=== PATIENT | male | born 1985 | race Caucasian/White ===

== ENCOUNTER 2016-08-10 23:13 | Emergency (ER) | payer SELFPAY ==
[~2016-08-10 23:13] MED LIST: DIAZEPAM PO; HYDROCHLOROTHIA25 MG PO; OMEPRAZOLE40 MG PO; PHENERGAN25 MG PO; PHENERGAN50 MG/SUPP PR; TYLENOL325 M1 PO
[2016-08-10] MEDS ORDERED: NO MEDICATIONS (23:18)
[2016-08-10 23:37] LABS: BASOPHIL% 0.3 % (0-2.5); HEMATOCRIT 43.8 % (38.0-50.0); HEMOGLOBIN 14.8 gm/dL (13.0-16.0); LYMPHOCYTE% 7.1 % (17.0-45.0); MEAN CELL VOLUME 85.5 FL (83-96); MEAN CORPUSCULAR HGB CONC 33.9 g/dL (30-36); MEAN PLATELET VOLUME 8.1 FL (6.5-11.5); MONOCYTE# 0.4 X10e3 (0-1.0); MONOCYTE% 2.8 % (3.0-12.0); NEUTROPHIL# 12.2 X10e3 (1.5-7.1); NEUTROPHIL% 89.8 % (40-75); PLATELET COUNT 209 X10e3 (140-420); RED BLOOD COUNT 5.12 X10e (3.90-5.60); RED CELL DISTRIBUTION WIDTH 13.1 % (11.0-15.5); WHITE BLOOD COUNT 13.6 X10e3 (4.0-10.5)
[2016-08-10 23:42] LABS: DIFF IND NO
[2016-08-10 23:52] LABS: ALBUMIN SERUM 4.9 g/dL (3.5-5.0); BILIRUBIN, DIRECT 0.1 mg/dL (0.0-0.2); BILIRUBIN,INDIRECT 0.6 mg/dL (0.0-0.9); BILIRUBIN,TOTAL 0.7 mg/dL (0.2-2.0); BUN/CREATININE RATIO 15.71; CALCIUM SERUM 9.3 mg/dL (8.4-10.2); CREATININE SERUM 0.7 mg/dL (0.6-1.4); GLOM FILT RATE Estimated 126.7 mL/min (>60); POTASSIUM 3.5 mmol/L (3.5-5.1); PROTEIN TOTAL SERUM 7.7 g/dL (6.0-8.3)
== END 2016-08-11 00:55 | disposition home or self-care (01) ==
LOC: SED 23:13
PROVIDERS: Emergency Medicine
DX: R11.2 Nausea with vomiting, unspecified (principal); Z90.49 Acquired absence of other specified parts of digestive tract; Z88.2 Allergy status to sulfonamides
CPT/HCPCS: 36415; 80048; 80076; 83690; 85025; 96361; 96374; 96375; 99284; J2270; J2405

== ENCOUNTER 2016-08-13 16:49 | Emergency (ER) | payer SELFPAY ==
--- NOTE | ~2016-08-13 | CR2 ---
[facility] A Service of [facility] RADIOLOGY TEXT RESULTS PATIENT: SOFIA HAMMER LOCATION: [facility] : 87 UNIT #: [id number] AGE: [address]: Marcos Lynne MD SEX: M ORDER DR: [id number] [facility] [address] [place], [place] [address] [id number] MR#: [id number] Acc #: [id number] NAME: SOFIA HAMMER : 1985 SEX: M STUDY DATE/TIME: 08/13/2016 21:21 UNIT: [facility] ROOM: STUDY DESCRIPTION: CR Abdomen Acute Series Attending Physician: Marcos Lynne M.D. Ordering Physician: Marcos Lynne M.D. Primary Care Physician: No Primary Care Physician MEDICAL IMAGING REPORT This report is preliminary unless electronic signature is present EXAM Acute abdomen series HISTORY Nausea and vomiting and diarrhea for 1 week. Fever. FINDINGS Flat and upright views of the abdomen and upright view of the chest demonstrate the bowel gas pattern is normal. No bowel dilatation or displacement or free air. Upright view of the chest demonstrates the cardiac size and pulmonary vascularity are normal. Surgical clips in the right upper quadrant and partial sacralization of L5 on the left are incidentally noted. IMPRESSION Negative acute abdomen series. No bowel obstruction. No active disease in the chest. Dictated by... Yoni Augustin M.D. THIS IS AN ELECTRONICALLY VERIFIED REPORT Yoni Augustin M.D. at 08/16/2016 10:19 AM ELISABETH/ricardo TD: 08/14/2016 05:44 JOB #: [id number] MEDICAL IMAGING REPORT Page 1 of 1 COPY
[~2016-08-13 16:49] MED LIST changes: +NO MEDICATIONS
[2016-08-13 17:40] LABS: BASOPHIL# 0.1 X10e3 (0-0.3); BASOPHIL% 0.5 % (0-2.5); EOSINOPHIL% 0.3 % (0.0-7.0); HEMATOCRIT 49.8 % (38.0-50.0); HEMOGLOBIN 16.7 gm/dL (13.0-16.0); LYMPHOCYTE# 2.7 X10e3 (1.0-3.5); LYMPHOCYTE% 24.4 % (17.0-45.0); MEAN CELL VOLUME 85.8 FL (83-96); MEAN CORPUSCULAR HEMOGLOBIN 28.7 PG (28-34); MEAN CORPUSCULAR HGB CONC 33.5 g/dL (30-36); MEAN PLATELET VOLUME 8.4 FL (6.5-11.5); MONOCYTE# 0.8 X10e3 (0-1.0); MONOCYTE% 7.5 % (3.0-12.0); NEUTROPHIL# 7.5 X10e3 (1.5-7.1); NEUTROPHIL% 67.3 % (40-75); PLATELET COUNT 254 X10e3 (140-420); RED BLOOD COUNT 5.81 X10e (3.90-5.60); RED CELL DISTRIBUTION WIDTH 13.1 % (11.0-15.5); WHITE BLOOD COUNT 11.1 X10e3 (4.0-10.5)
[2016-08-13 17:51] LABS: DIFF IND NO
[2016-08-13 18:04] LABS: ALBUMIN SERUM 4.9 g/dL (3.5-5.0); BILIRUBIN, DIRECT 0.1 mg/dL (0.0-0.2); BILIRUBIN,INDIRECT 1.2 mg/dL (0.0-0.9); BILIRUBIN,TOTAL 1.3 mg/dL (0.2-2.0); BUN/CREATININE RATIO 12.72; CALCIUM SERUM 9.7 mg/dL (8.4-10.2); CREATININE SERUM 1.1 mg/dL (0.6-1.4); GLOM FILT RATE Estimated 89.6 mL/min (>60); POTASSIUM 3.3 mmol/L (3.5-5.1); PROTEIN TOTAL SERUM 7.9 g/dL (6.0-8.3)
[2016-08-13 20:32] LABS: URINE SOURCE CLEAN CATCH
[2016-08-13 20:40] LABS: URINE BLOOD NEG (NEG); URINE GLUCOSE NORM (NORM); URINE KETONE NEG (NEG); URINE LEUKOCYTE ESTERASE NEG (NEG); URINE NITRATE NEG (NEG); URINE PH 6.5 (5-8); URINE PROTEIN 1+ (NEG); URINE UROBILINOGEN NORM (NORM)
[2016-08-13 20:58] LABS: URINE APPEARANCE HAZY; URINE COLOR YELLOW
[2016-08-13 21:00] LABS: URINE BILIRUBIN NEG (NEG)
[2016-08-13 21:10] LABS: CULTURE INDICATED? NO; URINE MUCUS PRESENT
== END 2016-08-13 23:35 | disposition home or self-care (01) ==
LOC: CED 16:49
DX: F12.10 Cannabis abuse, uncomplicated (principal); R11.10 Vomiting, unspecified; Z90.49 Acquired absence of other specified parts of digestive tract; Z88.2 Allergy status to sulfonamides
CPT/HCPCS: 36415; 74022; 80048; 80076; 81003; 83690; 85025; 96361; 96374; 96375; 99284; J2270; J2405; J2550